=== PATIENT | female | born 1965 | race Caucasian/White ===

== ENCOUNTER → 2016-12-20 | Day surgery (SDC) | payer MEDICARE ==
[~2016-12-20] MED LIST: ABIL5TAB6 PO; ATRO0.03; BACL20TA PO; BETH5TAB PO; CALC600T44 PO; CLON1 PO; CYMB30CA PO; DICL50 PO; DOCU240C PO; FLUT50I NASAL; FOLI400T30 PO; LACTATED RINGER'S 1000 ML INJ 1,000 ML ONE; LEVO125T3 PO; MIDAZOLAM HCL 2 MG/2 ML VIAL ONE; MIDO5 PO; MIRA33502 PO; NAPR250T57 PO; ONABOTULINUMTOXINA INJ 100 UNITS/VIAL ONE; OXYC10TA8 PO; PRIL40CA PO; PROM25TA5 PO; PROPOFOL 200 MG/20 ML AMP IV ONE; SODI1 PO; SODIUM CHLORIDE 0.9% INJ 10 ML ONE; TAB-TAB PO; TRAZ100 PO; VITA100017 PO; VITA10002 PO; ZOLP10TA3 PO
--- NOTE | 2016-12-20 14:04 | GIPROC ---
[facility] [address] [facility], [address] EGD PROCEDURE REPORT EXAM DATE: 12/20/2016 PATIENT NAME: Rachel May MR #: [id number] BIRTHDATE: 1965 ATTENDING: Ivan Casey MD ORDER #: [id number] CLOTH DESIZING RANGE TENDER: Patito Holman RN STATUS: outpatient INDICATIONS: The patient is a 51 yr old female here for an EGD due to gastroparesis PROCEDURE PERFORMED: EGD w/ biopsy MEDICATIONS: None, Per Anesthesia, None, and Per Anesthesia. TOPICAL ANESTHETIC: CONSENT: The patient understands the risks and benefits of the procedure and understands that these risks include, but are not limited to: sedation, allergic reaction, infection, perforation and/or bleeding. Alternative means of evaluation and treatment include, among others: physical exam, x-rays, and/or surgical intervention. The patient elects to proceed with this endoscopic procedure. medical equipment was checked for proper function. Hand hygiene and appropriate measures for infection prevention was taken. After the risks, benefits and alternatives of the procedure were thoroughly explained, Informed consent was verified, confirmed and timeout was successfully executed by the treatment team. The patient was anesthetized with topical anesthesia and the EG-[id number] ([id number]) endoscope was introduced through the mouth and advanced to the second portion of the duodenum. Retroflexed views revealed no abnormalities The gastroscope was then slowly withdrawn and removed. ESOPHAGUS: The mucosa of the esophagus appeared normal. STOMACH: There was a small amount of residual food seen in the gastric body. The mucosa of the stomach appeared normal. 100 units of botox injected into the pylorus. DUODENUM: The duodenal mucosa appeared normal. ADVERSE EVENTS: There were no complications. IMPRESSIONS: 1. The esophagus appeared normal 2. Food residue in the gastric body 3. The mucosa of the stomach appeared normal 4. Normal duodenal mucosa 5. Retroflexed views revealed no abnormalities RECOMMENDATIONS: Follow-up: GI clinic 4 week(s) PATIENT CONDITION: stable DISPOSITION: Home REPEAT EXAM: Ivan Casey MD eSigned: Ivan Casey MD 12/20/2016 2:04 PM cc: Jose Miguel Cerda, [facility] Nicole PATIENT NAME: Rachel May MR#: [id number]
== END | disposition home or self-care (01) ==
LOC: ESDC 11:45
PROVIDERS: ATTEND Internal Medicine Gastroenterology
DX: K31.84 Gastroparesis (principal)
CPT/HCPCS: 00740; 43236; J0585; J2250; J3010; J7120

== ENCOUNTER 2017-05-30 11:17 | Emergency (ER) | payer MEDICARE ==
[~2017-05-30] VITALS: Ht 154.9 cm; Wt 39.5 kg
[~2017-05-30 11:17] MED LIST changes: -LACTATED RINGER'S 1000 ML INJ 1,000 ML ONE; -MIDAZOLAM HCL 2 MG/2 ML VIAL ONE; -ONABOTULINUMTOXINA INJ 100 UNITS/VIAL ONE; -PROPOFOL 200 MG/20 ML AMP IV ONE; -SODIUM CHLORIDE 0.9% INJ 10 ML ONE
[2017-05-30 11:19] VITALS: BP 105/57; PULSE 101; RESP 15; TEMP 97.9; O2SAT 99
[2017-05-30] MEDS ORDERED: SODIUM CHLORIDE 0.9% FLUSH 10 ML FLUSH IV FLUSH PRN (12:00)
[2017-05-30 12:36] LABS: AUTOMATED NEUTROPHIL # 2.4 TH/MM3 (1.8-7.7); BASOPHIL % 0.7 % (0.0-2.0); EOSINOPHIL # 0.1 TH/MM3 (0-0.4); EOSINOPHIL % 1.6 % (0.0-4.0); HEMATOCRIT 39.5 % (35.0-46.0); HEMO FLAGS DIFF FINAL; LYMPH % 36.4 % (9.0-44.0); LYMPHOCYTE # 1.6 TH/MM3 (1.0-4.8); MEAN CELL VOLUME 96.4 FL (80.0-100.0); MEAN CORPUSCULAR HEMOGLOBIN 32.6 PG (27.0-34.0); MEAN CORPUSCULAR HGB CONC 33.9 % (32.0-36.0); MONO % 7.8 % (0.0-8.0); NEUT % 53.5 % (16.0-70.0); PLATELET COUNT 209 TH/MM3 (150-450); RED BLOOD COUNT 4.09 MIL/MM3 (4.00-5.30); RED CELL DISTRIBUTION WIDTH 13.2 % (11.6-17.2); WHITE BLOOD COUNT 4.4 TH/MM3 (4.0-11.0)
[2017-05-30 12:49] LABS: BACTERIA, URINE OCC /hpf; BLOOD, URINE NEG (NEG); COMMENT (UR) CULT NOT INDICATED; CULTURE IF INDICATED CULT NOT INDICATED; GLUCOSE,URINE NEG (NEG); KETONE, URINE NEG (NEG); MUCUS URINE FEW /lpf (OCC); NITRITE,URINE NEG (NEG); SQUAMOUS EPITHELIAL CELL URINE 5 /hpf (0-5); URINE COLOR YELLOW (YELLW/STRAW)
[2017-05-30 12:51] LABS: APTT (PATIENT) 26.4 SEC (24.3-30.1); INTERNATIONAL NORMALIZED RATIO 1.1 RATIO; PROTHROMBIN TIME - PATIENT 11.2 SEC (9.8-11.6)
[2017-05-30 12:58] LABS: ALT (GPT) 178 U/L (10-53); ANION GAP 6 MEQ/L (5-15); AST (GOT) 89 U/L (15-37); BICARBONATE 30.8 MEQ/L (21.0-32.0); BLOOD UREA NITROGEN 17 MG/DL (7-18); CHLORIDE 101 MEQ/L (98-107); GLOMERULAR FILTRATION RATE 85 ML/MIN (>89); POTASSIUM 3.8 MEQ/L (3.5-5.1); SODIUM (NA) 138 MEQ/L (136-145)
[2017-05-30 13:00] LABS: ALKALINE PHOSPHATASE 84 U/L (45-117); TOTAL BILIRUBIN ADULT 0.3 MG/DL (0.2-1.0)
[2017-05-30 13:28] VITALS: O2SAT 100
[2017-05-30 13:31] VITALS: BP 102/71; PULSE 60; RESP 20; O2SAT 100
[2017-05-30] MEDS ORDERED: SODIUM CHLOR 0.9% 1000 ML INJ 1,000 ML IV ONE (13:45)
[2017-05-30] MEDS ORDERED: MORPHINE SULFATE 4 MG/ML INJ IV PUSH ONE (13:45)
[2017-05-30] MEDS ORDERED: ONDANSETRON HCL 4 MG/2 ML VIAL IV PUSH ONE (13:45)
--- NOTE | 2017-05-30 13:52 | PD ---
HPI Chief Complaint: Abdominal Pain Time Seen by Provider: 13:28 Travel History International Travel<30 days: No Contact w/Intl Traveler<30days: No Traveled to known affect area: No History of Present Illness HPI 52-year-old female presents to the emergency department for evaluation of upper abdominal pain. Patient states she has been having it since the beginning of April. She sees Dr. Marissa wing outpatient. She brings up on her which looks sick she is having significant outpatient workup. She had ultrasound the gallbladder done on May 16 which showed cholelithiasis and dilated common bile duct. She had a CT abdomen/pelvis on May 05 which showed a 6 mm gallstone. Patient is currently on oxycodone 10 mg every 2 hours. She is supposed to see a surgeon about having her gallbladder out outpatient as well as a colonoscopy. She states the doctors local [facility] nurse practitioner's are tender to the emergency department today. She states her pain is currently 8/10, radiates across the upper abdomen, aching and sharp at times. Patient reports diarrhea, 7 times in the past 24 hours. She states is actually better than it has been. Moderate severity. Patient reports past medical history of diabetes, gastroparesis, CMP, hypotension, anxiety, depression, neck stenosis, arthritis, PTSD, chronic pain, elevated liver enzymes. PFSH Past Medical History Cancer: Yes (thyroid) Cardiovascular Problems: Yes (tachycardia mitral valve prolapse) Diabetes: No Endocrine: Yes Genitourinary: No Hepatitis: No Hiatal Hernia: Yes Immune Disorder: Yes (form of mono) Musculoskeletal: Yes (arthritis of the neck scoliosis bulging disc) Neurologic: No Psychiatric: Yes (anxiety depression "pt states recovering drug addiction") Reproductive: No Respiratory: No Thyroid Disease: Yes (hx of thyroid cancer) Past Surgical History Abdominal Surgery: Yes (appendectomy) AICD: No Body Medical Devices: breast implants Gynecologic Surgery: Yes (hystererctomy laparoscopy ) Joint Replacement: No Oral Surgery: Yes (rhinoplasty carisa lower blepharplasty) Pacemaker: No Thoracic Surgery: Yes (breast implants liposuction) Social History Alcohol Use: No Tobacco Use: Yes (vapes) Substance Use: No Allergies-Medications (Allergen,Severity, Reaction): Coded Allergies: prochlorperazine (Unverified Allergy, Severe, anaphylaxis, 05/30/17) Reported Meds & Prescriptions Reported Meds & Active Scripts Active Reported Abilify 5 mg (Aripiprazole) 5 Mg Tab 5 Mg PO DAILY Cymbalta (Duloxetine HCl) 30 Mg Cap 90 Mg PO DAILY Naprosyn (Naproxen) 250 Mg Tab 220 Mg PO DAILY Naprosyn (Naproxen) 250 Mg Tab 440 Mg PO HS PRN Fluticasone Propionate 50 Mcg/Act Spr NASAL BID Voltaren (Diclofenac Sodium) 50 Mg Tabec 75 Mg PO BID Prilosec 40 mg cap (Omeprazole) 40 Mg Cap 40 Mg PO DAILY Trazodone Hcl (Trazodone HCl) 100 Mg Tab 100 Mg PO HS Atrovent Nasal (Ipratropium [place]) 0.03 % Isa 2 Spr NA TID Miralax (Polyethylene Glycol) 255 Gm Powd 1 Capful PO DAILY MIX 1 CAPFUL (17 GM) IN 8 OZ OF WATER Clonazepam 1 Mg Tab 1 Mg PO TID Zolpidem Tartrate 10 Mg Tab 10 Mg PO HS Levothyroxine 125 mcg (Levothyroxine Sodium) 125 Mcg Tab 125 Mcg PO DAILY Bethanechol Chloride 5 Mg Tab 5 Mg PO DAILY Lioresal 20 Mg Tab (Baclofen) 20 Mg Tab 20 Mg PO TID Oxycodone (Oxycodone HCl) 10 Mg Tab 10 Mg PO Q4H PRN Proamatine 5 Mg Tab (Midodrine) 5 Mg Tab 5 Mg PO DAILY Sodium Chloride 1 Gm Tab 1 Gm PO BID Vitamin B12 (Cyanocobalamin) 1,000 Mcg Tab 2,000 Mcg PO DAILY Folate (Folic Acid) 400 Mcg Tab 400 Mcg PO DAILY Calcium (Calcium Carbonate) 600 Mg Tab 600 Mg PO DAILY Docusate Calcium 240 Mg Cap 250 Mg PO DAILY Multivitamin (Multivitamins) 1 Tab Tab 1 Tab PO DAILY Vitamin C (Ascorbic Acid) 1,000 Mg Tab 1,000 Mg PO DAILY Phenergan 25 mg (Promethazine HCl) 25 Mg Tab 25 Mg PO Q6H PRN Review of Systems Except as stated in HPI: all other systems reviewed are Neg Physical Exam Narrative GENERAL: Well-nourished, well-developed thin female patient, afebrile. SKIN: Focused skin assessment warm/dry. HEAD: Normocephalic. Atraumatic EYES: No scleral icterus. No injection or drainage. NECK: Supple, trachea midline. No JVD or lymphadenopathy. CARDIOVASCULAR: Regular rate and rhythm without murmurs, gallops, or rubs. RESPIRATORY: Breath sounds equal bilaterally. No accessory muscle use. Lungs sounds are clear to auscultation. GASTROINTESTINAL: Abdomen soft and nondistended. Patient has tenderness to palpation of the right upper quadrant, epigastric area, left upper quadrant.. MUSCULOSKELETAL: No cyanosis, or edema. BACK: Nontender without obvious deformity. No CVA tenderness. Data Data Last Documented VS Vital Signs Date Time Temp Pulse Resp B/P (MAP) Pulse Ox O2 Delivery O2 Flow Rate FiO2 05/30/17 13:31 60 20 102/71 (81) 100 Room Air 05/30/17 11:19 97.9 Orders Orders Complete Blood Count With Diff (05/30/17 11:46) Comprehensive Metabolic Panel (05/30/17 11:46) Lipase (05/30/17 11:46) Prothrombin Time / Inr (Pt) (05/30/17 11:46) Act Partial Throm Time (Ptt) (05/30/17 11:46) Urinalysis - C+S If Indicated (05/30/17 11:46) Iv Access Insert/Monitor (05/30/17 11:46) Ecg Monitoring (05/30/17 11:46) Oximetry (05/30/17 11:46) Sodium Chloride 0.9% Flush (Ns Flush) (05/30/17 12:00) Electrocardiogram (05/30/17 11:46) Sodium Chlor 0.9% 1000 Ml Inj (Ns 1000 M (05/30/17 13:45) Morphine Inj (Morphine Inj) (05/30/17 13:45) Ondansetron Inj (Zofran Inj) (05/30/17 13:45) Labs Laboratory Tests Test 05/30/17 12:10 White Blood Count 4.4 TH/MM3 Red Blood Count 4.09 MIL/MM3 Hemoglobin 13.4 GM/DL Hematocrit 39.5 % Mean Corpuscular Volume 96.4 FL Mean Corpuscular Hemoglobin 32.6 PG Mean Corpuscular Hemoglobin Concent 33.9 % Red Cell Distribution Width 13.2 % Platelet Count 209 TH/MM3 Mean Platelet Volume 8.2 FL Neutrophils (%) (Auto) 53.5 % Lymphocytes (%) (Auto) 36.4 % Monocytes (%) (Auto) 7.8 % Eosinophils (%) (Auto) 1.6 % Basophils (%) (Auto) 0.7 % Neutrophils # (Auto) 2.4 TH/MM3 Lymphocytes # (Auto) 1.6 TH/MM3 Monocytes # (Auto) 0.3 TH/MM3 Eosinophils # (Auto) 0.1 TH/MM3 Basophils # (Auto) 0.0 TH/MM3 CBC Comment DIFF FINAL Differential Comment Prothrombin Time 11.2 SEC Prothromb Time International Ratio 1.1 RATIO Activated Partial Thromboplast Time 26.4 SEC Urine Color YELLOW Urine Turbidity CLEAR Urine pH 6.0 Urine Specific [place] 1.014 Urine Protein NEG mg/dL Urine Glucose (UA) NEG mg/dL Urine Ketones NEG mg/dL Urine Occult Blood NEG Urine Nitrite NEG Urine Bilirubin NEG Urine Urobilinogen LESS THAN 2.0 MG/DL Urine Leukocyte Esterase NEG Urine RBC 1 /hpf Urine WBC LESS THAN 1 /hpf Urine Squamous Epithelial Cells 5 /hpf Urine Bacteria OCC /hpf Urine Mucus FEW /lpf Microscopic Urinalysis Comment CULT NOT INDICATED Blood Urea Nitrogen 17 MG/DL Creatinine 0.72 MG/DL Random Glucose 106 MG/DL Total Protein 7.1 GM/DL Albumin 4.0 GM/DL Calcium Level 9.1 MG/DL Alkaline Phosphatase 84 U/L Aspartate Amino Transf (AST/SGOT) 89 U/L Alanine Aminotransferase (ALT/SGPT) 178 U/L Total Bilirubin 0.3 MG/DL Sodium Level 138 MEQ/L Potassium Level 3.8 MEQ/L Chloride Level 101 MEQ/L Carbon Dioxide Level 30.8 MEQ/L Anion Gap 6 MEQ/L Estimat Glomerular Filtration Rate 85 ML/MIN Lipase 149 U/L [facility] Medical Decision Making Medical Screen Exam Complete: Yes Emergency Medical Condition: Yes Medical Record Reviewed: Yes Differential Diagnosis Chronic pain versus cholelithiasis versus cholecystitis versus pancreatitis Narrative Course 52-year-old female presents to the emergency department sent by hvac lead. Patient has had abdominal pain for approximately one month. She has been worked up outpatient. She does bring the paperwork with her and I did review it. EKG shows sinus rhythm, heart rate 60, no acute ST changes. CBC is unremarkable. CMP shows elevated liver enzymes with an AST of 89, ALT 178. Lipase is 149. Coags are unremarkable. UA shows occasional bacteria, culture not indicated. Patient is given normal saline 1 L IV bolus, morphine 4 mg IV, Zofran [address] Edwards is paged. I spoke to Dr. Roach who states that he believes his nurse practitioner saw her and sent her to the emergency department. He would like her to make a follow-up appointment and see him. His phone # is [phone]. I discussed this with the patient who is frustrated and would like to be admitted. However, she states she'll make a follow-up appointment and see Dr. Johns. Her labs are reassuring. The patient was discharged in stable condition with instructions, including return instructions and follow up instructions. Diagnosis Primary Impression: Abdominal pain Qualified Codes: R10.10 - Upper abdominal pain, unspecified Referrals: Geoffrey Roach MD call for appointment Patient Instructions: Abdominal Pain (ED), General Instructions Additional Instructions: Follow up with Dr. Roach. His number is [phone]. Return to the emergency department for any acute, worsening of symptoms. Med/Other Pt SpecificInfo: No Change to Meds Disposition: 01 DISCHARGE HOME Condition: Stable Jeanne Reagan May 30, 2017 13:52
[2017-05-30 14:30] VITALS: BP 98/68; PULSE 64; RESP 22; O2SAT 96
--- NOTE | 2017-05-31 16:46 | EKG ---
Date Performed: 05/30/2017 Time Performed: 13:29:48 PTAGE: 52 years EKG: Sinus rhythm NORMAL ECG Since PREVIOUS TRACING , no significant change noted PREVIOUS TRACIN01/27/2016 09.47 DOCTOR: Dallas Isaacs Interpretating Date/Time 05/31/2017 16:45:34
== END 2017-05-30 15:52 | disposition home or self-care (01) ==
LOC: NEPC 11:17
DX: R10.10 Upper abdominal pain, unspecified (principal); R19.7 Diarrhea, unspecified; E11.43 Type 2 diabetes mellitus with diabetic autonomic (poly)neuropathy; K31.84 Gastroparesis; Z72.0 Tobacco use; Z85.850 Personal history of malignant neoplasm of thyroid
CPT/HCPCS: 80053; 81001; 83690; 85025; 85610; 85730; 93005; 96361; 96374; 96375; 99284; J2270; J2405; J7030

== ENCOUNTER → 2017-09-24 | Outpatient (CLI) | payer MEDICARE ==
[~2017-09-24] MED LIST changes: +ASCO1TAB14 PO; +B-122000 PO; +BIOTCAP PO; +CALC1TAB87 PO; +CETI-1 PO; +CLON1TAB PO; +CYMB60CA PO; +DAILTAB38 PO; +DICY10 PO; +DICY10CA12 PO; +DOCU100C15 PO; +ERYT250T13 PO; +ESTR0.5T PO; +ETOD400T PO; +FOLI400T PO; +LEVO125T4 PO; +MIDO5TAB PO; +MIRA3350 PO; +OXYC-395 PO; +PROM25TA10 PO; +SODI1TAB PO; +TRAZ300T2 PO; +ZINC220T PO
[2017-09-24 11:20] LABS: AUTOMATED NEUTROPHIL # 1.6 TH/MM3 (1.8-7.7); BASOPHIL % 0.9 % (0.0-2.0); EOSINOPHIL # 0.2 TH/MM3 (0-0.4); EOSINOPHIL % 4.4 % (0.0-4.0); HEMATOCRIT 38.6 % (35.0-46.0); HEMOGLOBIN 13.1 GM/DL (11.6-15.3); LYMPH % 42.1 % (9.0-44.0); LYMPHOCYTE # 1.5 TH/MM3 (1.0-4.8); MEAN CELL VOLUME 96.9 FL (80.0-100.0); MEAN CORPUSCULAR HEMOGLOBIN 32.8 PG (27.0-34.0); MEAN CORPUSCULAR HGB CONC 33.8 % (32.0-36.0); MEAN PLATELET VOLUME 7.4 FL (7.0-11.0); MONO % 8.8 % (0.0-8.0); MONOCYTE # 0.3 TH/MM3 (0-0.9); NEUT % 43.8 % (16.0-70.0); PLATELET COUNT 234 TH/MM3 (150-450); RED BLOOD COUNT 3.98 MIL/MM3 (4.00-5.30); RED CELL DISTRIBUTION WIDTH 13.2 % (11.6-17.2); WHITE BLOOD COUNT 3.6 TH/MM3 (4.0-11.0)
[2017-09-24 11:28] LABS: INTERNATIONAL NORMALIZED RATIO 1.1 RATIO; PROTHROMBIN TIME - PATIENT 10.9 SEC (9.8-11.6)
[2017-09-24 11:34] LABS: ALBUMIN 3.7 GM/DL (3.4-5.0); AST (GOT) 36 U/L (15-37); BICARBONATE 31.5 MEQ/L (21.0-32.0); BLOOD UREA NITROGEN 18 MG/DL (7-18); CALCIUM 8.8 MG/DL (8.5-10.1); CHLORIDE 107 MEQ/L (98-107); CREATININE 0.79 MG/DL (0.50-1.00); GLOMERULAR FILTRATION RATE 77 ML/MIN (>89); GLUCOSE,FASTING 77 MG/DL (74-99); SODIUM (NA) 142 MEQ/L (136-145)
[2017-09-24 11:40] LABS: ALKALINE PHOSPHATASE 76 U/L (45-117); ALT (GPT) 59 U/L (10-53); TOTAL BILIRUBIN ADULT 0.4 MG/DL (0.2-1.0)
--- NOTE | 2017-09-24 12:08 | RADRPT ---
EXAM DATE/TIME: 09/24/2017 11:36 [place] COMPARISON: No previous studies available for comparison. INDICATIONS : Evaluate for pneumothorax, pneumonia, or other communicable disease. Pre-op bowel obstruction. MEDICAL HISTORY : None. SURGICAL HISTORY : None. ENCOUNTER: Initial ACUITY: 1 day PAIN SCORE: 0/10 LOCATION: Bilateral chest FINDINGS: PA and lateral views of the chest demonstrate the lungs to be symmetrically aerated without evidence of mass, infiltrate or effusion. No evidence of pneumothorax. The cardiomediastinal contours are un remarkable. Osseous structures are intact. CONCLUSION: No acute cardiopulmonary disease. Fazal Mayer MD on September 24, 2017 at 12:06 Board Certified Radiologist. This report was verified electronically.
[2017-09-24 13:28] LABS: AMORPHOUS SEDIMENT, URINE FEW; BILIRUBIN, URINE MOD (NEG); BLOOD, URINE NEG (NEG); GLUCOSE,URINE NEG (NEG); KETONE, URINE NEG (NEG); MUCUS URINE FEW /lpf (OCC); NITRITE,URINE NEG (NEG); SQUAMOUS EPITHELIAL CELL URINE 1 /hpf (0-5); URINE COLOR YELLOW (YELLW/STRAW); URINE LEUKOCYTE ESTERASE NEG (NEG)
--- NOTE | 2017-09-24 22:46 | EKG ---
Date Performed: 09/24/2017 Time Performed: 10:43:18 PTAGE: 52 years EKG: Sinus rhythm LOW QRS VOLTAGE IN PRECORDIAL LEADS BORDERLINE ECG NO PREVIOUS TRACING Since the previous tracing, no significant change noted DOCTOR: [place] Gar Interpretating Date/Time 09/24/2017 22:45:07
== END ==
LOC: CPRE 10:19
PROVIDERS: ATTEND Colon & Rectal Surgery
DX: Z01.812 Encounter for preprocedural laboratory examination (principal); Z01.811 Encounter for preprocedural respiratory examination; Z01.810 Encounter for preprocedural cardiovascular examination; K57.30 Diverticulosis of large intestine without perforation or abscess without bleeding
CPT/HCPCS: 36415; 71046; 80053; 81001; 85025; 85610; 85730; 93005

== ENCOUNTER 2017-09-27 09:39 | Inpatient (IN) | payer MEDICARE ==
[~2017-09-27] VITALS: Ht 154.9 cm; Wt 50.6 kg
[~2017-09-27 09:39] MED LIST changes: -ABIL5TAB6 PO; -ATRO0.03; -BETH5TAB PO; -CALC600T44 PO; -CLON1 PO; -CYMB30CA PO; -DICL50 PO; -DOCU240C PO; -FLUT50I NASAL; -FOLI400T30 PO; -LEVO125T3 PO; -MIDO5 PO; -MIRA33502 PO; -NAPR250T57 PO; -OXYC10TA8 PO; -PRIL40CA PO; -PROM25TA5 PO; -SODI1 PO; -TAB-TAB PO; -TRAZ100 PO; -VITA100017 PO; -VITA10002 PO
[2017-09-27] MEDS ORDERED: ONDANSETRON HCL 4 MG/2 ML VIAL IV ONE (12:00)
[2017-09-27] MEDS ORDERED: SODIUM CHLORID 0.9% 500 ML IV PRN (12:00)
[2017-09-27] MEDS ORDERED: PROPOFOL 200 MG/20 ML AMP IV ONE (12:00)
[2017-09-27] MEDS ORDERED: METRONIDAZOLE 500 MG/100 ML ISONTONIC SOLN IV SCH (12:00)
[2017-09-27] MEDS ORDERED: LACTATED RINGER'S 1000 ML IV PRN (12:00)
[2017-09-27] MEDS ORDERED: ceFAZolin 1,000 MG/NS 100 ML IV SCH ×2 (12:00)
[2017-09-27] MEDS ORDERED: LIDOCAINE HCL 1% PF 5 ML SYRINGE OTHER ONE (12:00)
[2017-09-27] MEDS ORDERED: ROCURONIUM INJ 50 MG/5 ML SYRINGE IV PUSH ONE (12:00)
[2017-09-27] MEDS ORDERED: DEXT 5%-NACL 0.9% 1000 ML INJ 1,000 ML IV SCH (12:00)
[2017-09-27] MEDS ORDERED: NEOSTIGMINE 5 MG/5 ML SYRINGE IV PUSH ONE (12:00)
[2017-09-27] MEDS ORDERED: METOPROLOL TARTRATE 25 MG TAB PO PRN (12:00)
[2017-09-27] MEDS ORDERED: NORMOSOL R INJ 1,000 ML IV ONE (12:00)
[2017-09-27] MEDS ORDERED: DEXAMETHASONE SOD PHOS 4 MG/ML VIAL IV ONE (12:00)
[2017-09-27] MEDS ORDERED: ESMOLOL HCL 100 MG/10 ML VIAL IV ONE (12:00)
[2017-09-27] MEDS ORDERED: ALVIMOPAN 12 MG CAPSULE - On Call PO SCH (12:00)
[2017-09-27] MEDS ORDERED: GLYCOPYRROLATE 1 MG/5 ML SYRINGE IV PUSH ONE (12:00)
[2017-09-27] MEDS ORDERED: LACTATED RINGER'S 1000 ML INJ 1,000 ML IV ONE (12:00)
[2017-09-27] MEDS ORDERED: HYDROmorphone HCL PF 2 MG/ML VIAL ONE (12:52)
[2017-09-27] MEDS ORDERED: ACETAMINOPHEN 1000 MG/100 ML 100 ML IV ONE (12:52)
[2017-09-27] MEDS ORDERED: fentaNYL CITRATE 250 MCG/5 ML AMP ONE (12:52)
[2017-09-27] MEDS ORDERED: SUGAMMADEX SODIUM 200 MG/2 ML VIAL IV PUSH ONE (12:52)
[2017-09-27] MEDS ORDERED: MIDAZOLAM HCL 2 MG/2 ML VIAL ONE ×2 (13:35→16:02)
--- NOTE | 2017-09-27 14:34 | PD.OP ---
Operative Report Date of Surgery: Sep 27, 2017 Preoperative Diagnosis: Diverticulitis Postoperative Diagnosis: Same Procedure: Cystoscopy with bilateral ureteral catheter insertion Anesthesia: SAVAGE Surgeon: aJsbir Diehl Tilt Tray Driver(s): None Resident Surgeon: None Operation and Findings: Cystoscopy with [bilateral ureteral catheter insertion. This] is a [52]-year- old [female] with a history of [diverticulitis]. [Davon] requested bilateral ureteral catheter placement prior to undergoing [colon resection]. Risk and benefits were discussed with the patient and he is willing proceed. Patient was brought to operating room identify myself as [Cornelia Hernandez]. [ She] was placed in dorsal lithotomy position, prepped and draped in usual sterile fashion, received preprocedure antibiotics, and general endotracheal tube anesthesia was administered. 22 Scottish scope was inserted in the bladder and carrillo cystoscopy [did not reveal any abnormalities.]. The left ureteral orifice was identified and a 5 Scottish open catheter was inserted in the left ureteral orifice without difficulty. This was again repeated on the right side without difficulty. The Parker was then inserted and the catheters were secured to the catheter. The patient tolerated the procedure well. Jasbir Dihel DO Sep 27, 2017 14:34
[2017-09-27] MEDS ORDERED: oxyCODONE/ACETAMINOPHEN 5 MG/325 MG TAB PO PRN ×2 (15:30)
[2017-09-27] MEDS ORDERED: SODIUM CHLORIDE 0.9% FLUSH 10 ML FLUSH IV FLUSH PRN (15:30)
[2017-09-27] MEDS ORDERED: Post-op Orders (for Pharmacy) XX ONE (15:30)
[2017-09-27] MEDS ORDERED: POTASSIUM CHLOR 40 MEQ PREMIX 100 ML IV PRN (15:30)
[2017-09-27] MEDS ORDERED: POTASSIUM CHLOR 20 MEQ PREMIX 100 ML IV PRN (15:30)
[2017-09-27] MEDS ORDERED: KETOROLAC TROMETHAMINE 30 MG/ML (IVP) VIAL IVP PRN (15:30)
[2017-09-27] MEDS ORDERED: NALOXONE HCL 0.4 MG/ML AMP IV PUSH PRN (15:30)
[2017-09-27] MEDS ORDERED: ENALAPRILAT 1.25 MG/ML VIAL IV PUSH PRN (15:30)
[2017-09-27] MEDS ORDERED: BENZOCAINE 6 MG/MENTHOL 10 MG LOZENGE BUCCAL PRN (15:30)
[2017-09-27] MEDS ORDERED: ZOLPIDEM TARTRATE 5 MG TAB PO PRN (15:30)
[2017-09-27] MEDS ORDERED: ONDANSETRON HCL 4 MG/2 ML VIAL IV PUSH PRN (15:30)
[2017-09-27] MEDS ORDERED: DO NOT ADM ANY ANTICOAGULANT DRUGS PRN (15:59)
[2017-09-27] MEDS ORDERED: *MEPERIDINE 25 MG INJ VIAL PERIprocedural Use ONLY ONE (16:19)
[2017-09-27] MEDS ORDERED: *HYDROmorphone PF 1 MG VIAL PERIprocedural Use ONLY ONE ×2 (16:20→17:31)
[2017-09-27 16:45] LABS: AUTOMATED NEUTROPHIL # 15.9 TH/MM3 (1.8-7.7); BASOPHIL % 0.2 % (0.0-2.0); EOSINOPHIL % 0.1 % (0.0-4.0); HEMATOCRIT 38.4 % (35.0-46.0); HEMOGLOBIN 12.8 GM/DL (11.6-15.3); LYMPH % 6.8 % (9.0-44.0); LYMPHOCYTE # 1.2 TH/MM3 (1.0-4.8); MEAN CORPUSCULAR HEMOGLOBIN 32.5 PG (27.0-34.0); MEAN CORPUSCULAR HGB CONC 33.5 % (32.0-36.0); MEAN PLATELET VOLUME 7.3 FL (7.0-11.0); MONO % 3.3 % (0.0-8.0); MONOCYTE # 0.6 TH/MM3 (0-0.9); NEUT % 89.6 % (16.0-70.0); PLATELET COUNT 216 TH/MM3 (150-450); RED BLOOD COUNT 3.96 MIL/MM3 (4.00-5.30); RED CELL DISTRIBUTION WIDTH 13.1 % (11.6-17.2); WHITE BLOOD COUNT 17.7 TH/MM3 (4.0-11.0)
[2017-09-27] MEDS: D5-LR + KCL 20 MEQ INJ 1,000 ML IV SCH ×2 (17:00→23:34)
[2017-09-27 17:18] LABS: BICARBONATE 23.4 MEQ/L (21.0-32.0); CALCIUM 7.9 MG/DL (8.5-10.1); CREATININE 0.72 MG/DL (0.50-1.00)
[2017-09-27] MEDS: HYDROmorphone HCL PCA 6 MG/30 ML IV SCH (17:45)
[2017-09-27] MEDS: clonazePAM 1 MG TAB PO SCH (18:00)
[2017-09-27] MEDS: METOCLOPRAMIDE HCL 10 MG/2 ML VIAL IVS SCH ×2 (18:00→23:34)
[2017-09-27] MEDS: BACLOFEN 20 MG TAB PO SCH (18:00)
[2017-09-27 18:33] VITALS: BP 130/79; PULSE 100; RESP 20; TEMP 98.3; O2SAT 97
[2017-09-27 20:00] VITALS: BP 111/60; PULSE 98; RESP 14; TEMP 98.6; O2SAT 96
[2017-09-27] MEDS: traZODone HCL 100 MG TAB PO SCH (21:00)
[2017-09-27] MEDS ORDERED: ETODOLAC 200 MG CAP PO SCH (21:00)
[2017-09-27] MEDS: metroNIDAZOLE 500 MG INJ 100 ML IV SCH (21:57)
[2017-09-27] MEDS: SODIUM CHLORIDE 0.9% FLUSH 10 ML FLUSH IV FLUSH SCH (21:58)
[2017-09-27] MEDS: FUROSEMIDE 20 MG/2 ML VIAL IV PUSH SCH (21:59)
[2017-09-27] MEDS: PCA - TOTAL MG DILAUDID DELIVERED PER SHIFT OTHER SCH (22:00)
[2017-09-28] VITALS (7 sets, daily range): BP systolic 97–118; BP diastolic 62–72; PULSE 90–105; RESP 14–18; TEMP 98–98.8; O2SAT 95–97
[2017-09-28] MEDS: HYDROmorphone HCL PCA 6 MG/30 ML IV SCH ×4 (00:38→11:11)
[2017-09-28] MEDS: LEVOTHYROXINE SODIUM 125 MCG TAB PO SCH (05:53)
[2017-09-28] MEDS: clonazePAM 1 MG TAB PO SCH ×3 (05:53→18:03)
[2017-09-28] MEDS: PCA - TOTAL MG DILAUDID DELIVERED PER SHIFT OTHER SCH ×3 (05:54→21:36)
[2017-09-28] MEDS: ERYTHROMYCIN EC 250 MG TABEC PO SCH ×2 (05:54→18:03)
[2017-09-28] MEDS: METOCLOPRAMIDE HCL 10 MG/2 ML VIAL IVS SCH ×4 (05:55→21:37)
[2017-09-28] MEDS: metroNIDAZOLE 500 MG INJ 100 ML IV SCH ×2 (05:55→13:31)
[2017-09-28] MEDS: D5-LR + KCL 20 MEQ INJ 1,000 ML IV SCH ×2 (06:08→14:00)
[2017-09-28 06:29] LABS: AUTOMATED NEUTROPHIL # 12.4 TH/MM3 (1.8-7.7); BASOPHIL % 0.2 % (0.0-2.0); HEMATOCRIT 35.7 % (35.0-46.0); LYMPH % 6.9 % (9.0-44.0); MEAN CELL VOLUME 96.3 FL (80.0-100.0); MEAN CORPUSCULAR HEMOGLOBIN 32.3 PG (27.0-34.0); MEAN CORPUSCULAR HGB CONC 33.5 % (32.0-36.0); MEAN PLATELET VOLUME 7.3 FL (7.0-11.0); MONO % 5.1 % (0.0-8.0); MONOCYTE # 0.7 TH/MM3 (0-0.9); NEUT % 87.8 % (16.0-70.0); PLATELET COUNT 210 TH/MM3 (150-450); RED BLOOD COUNT 3.71 MIL/MM3 (4.00-5.30); RED CELL DISTRIBUTION WIDTH 13.5 % (11.6-17.2); WHITE BLOOD COUNT 14.2 TH/MM3 (4.0-11.0)
[2017-09-28 06:59] LABS: BICARBONATE 30.2 MEQ/L (21.0-32.0); CALCIUM 7.8 MG/DL (8.5-10.1); CREATININE 0.83 MG/DL (0.50-1.00)
[2017-09-28] MEDS: SODIUM CHLORIDE 0.9% FLUSH 10 ML FLUSH IV FLUSH SCH ×2 (09:00→21:35)
--- NOTE | 2017-09-28 09:00 | MP ---
cc: Martin Lai MD DATE OF OPERATION: 09/27/2017 PREOPERATIVE DIAGNOSES: 1. Severe constipation. 2. Partial colon obstruction secondary to sigmoid tortuosity and adhesions. POSTOPERATIVE DIAGNOSES: 1. Severe constipation. 2. Partial colon obstruction secondary to sigmoid tortuosity and adhesions. PROCEDURES PERFORMED: Sigmoid colectomy. ANESTHESIA: General endotracheal. SURGEON: Martin Lai MD NEUROPHYSIOLOGY TECH: Dr. Daly ESTIMATED BLOOD LOSS: 25 mL. OPERATING TIME: One hour. OPERATIVE FINDINGS: This patient was a very thin patient, on multiple pain medicines and narcotic pain medicines, with severe constipation. The patient has had multiple thorough workups including colonoscopy, which was very difficult due to tortuosity of the sigmoid colon and she has had high fecal impactions. A Gastrografin enema study showed high fecal impaction above this sigmoid colon tortuosity and for this reason, exploratory laparotomy and sigmoid colectomy was recommended. At surgery, exploration of the abdominal cavity revealed that the liver was palpably normal. The gallbladder was surgically absent. Revealed that the remainder of the colon and small bowel was all palpably normal. She did have a very tortuous sigmoid colon loop that was stuck down in her pelvis at the site of her previous hysterectomy and stuck to the posterior wall of the bladder. This was mobilized and a sigmoid colectomy was done in a simple manner using an Ethicon LOGAN stapler for anastomosis. OPERATIVE TECHNIQUE: The patient was placed on the table in the supine position. After adequate general endotracheal anesthesia, the legs were placed in the perineal lithotomy position and the abdomen was prepped and draped in usual manner. Transverse infraumbilical skin incision was made, carried down through subcutaneous tissue and the rectus muscles and the peritoneal cavity was entered with the above-mentioned findings. The sigmoid colon and descending colon was mobilized along its peritoneal reflection up to, but not including, the splenic flexure. There was a lot of sigmoid redundancy and the sigmoid colon was tortuous and stuck down in the pelvis, above the rectum, posterior to the bladder and stuck to the bladder. This was easily unraveled with lysis of the adhesions. Once the sigmoid colon was straight and above the rectum, there was a big redundant loop that we elected to resect with simple resection and LOGAN anastomosis rather than using an EEA anastomosis. A point was chosen just above the rectum and an opening was made in the mesentery with electrocautery and the point of upper resection was chosen and the opening was made in the mesocolon as well. Staying close to the bowel wall, the mesocolon was successfully clamped, cut and ligated with 0 Vicryl ligatures and the upper margin of the resection was divided with an Ethicon LOGAN 55 stapling device, as well as the lower margin. The bowels were then placed next to each other and a functional end-to-end anastomosis was done with an Ethicon LOGAN 55 stapling device along the antimesenteric border of the bowel. The colotomy was closed with a TX 60 blue staple stapler and the opening in the mesentery was closed with a running 3-0 Vicryl suture. A seromuscular suture was placed at the apex of the staple line to prevent disruption at the apex. Once this was done, there was no tension on the anastomosis and the long redundant sigmoid had been removed. It was approximately 9-10 inches in length. Next, the abdominal cavity and pelvis were irrigated thoroughly with 2 liters of saline solution and aspirated dry and the bowels were replaced in the abdominal cavity in an armored car messenger manner and the transverse colon was placed over the small bowel. There was not much omentum since she was quite thin. Next, the abdominal wall was closed with a double-stranded #1 PDS through the posterior rectus sheath. The muscle layer was irrigated with a liter of saline solution and the anterior rectus sheath was closed with double stranded #1 PDS as well. The subcutaneous tissue was irrigated thoroughly with saline solution and aspirated dry and the skin was closed with running 3-0 Vicryl subcuticular sutures and dressing was applied. Sponge, needle and instrument counts were reported as correct. Estimated blood loss was 25 mL. The patient tolerated the procedure well and left the operating room in good condition. MD TAYLOR Lynn/SHAHBAZ , 06:42 PM , 07:04 PM
[2017-09-28] MEDS: MIDODRINE 5 MG TAB PO SCH (09:26)
[2017-09-28] MEDS: FUROSEMIDE 20 MG/2 ML VIAL IV PUSH SCH ×2 (09:28→21:34)
[2017-09-28] MEDS: PANTOPRAZOLE SODIUM 40 MG VIAL IVP SCH (09:28)
[2017-09-28] MEDS: BACLOFEN 20 MG TAB PO SCH ×3 (09:29→18:03)
[2017-09-28] MEDS: ESTRADIOL 1 MG TAB PO SCH (09:29)
[2017-09-28] MEDS: ALVIMOPAN 12 MG CAPSULE - Post-op dosing PO SCH ×2 (09:29→21:35)
[2017-09-28] MEDS: DULoxetine HCl DR 60 MG CAP PO SCH (09:29)
[2017-09-28] MEDS: [UNRECOGNIZED DRUG - REMARK] PO SCH ×2 (11:30→21:00)
--- NOTE | 2017-09-28 14:15 | HHI.PR ---
Subjective Remarks No vomiting. Some nausea. Tolerating liquids. Objective Vital Signs Date Time Temp Pulse Resp B/P (MAP) Pulse Ox O2 Delivery O2 Flow Rate FiO2 09/28/17 12:00 98.2 90 18 99/64 (76) 97 09/28/17 11:11 20 09/28/17 08:00 98.0 90 18 109/67 (81) 97 09/28/17 06:36 16 09/28/17 06:07 16 09/28/17 05:54 16 09/28/17 04:00 98.8 102 16 97/62 (74) 97 09/28/17 00:38 16 09/28/17 00:00 98.6 95 14 102/68 (79) 97 09/27/17 22:00 14 09/27/17 20:00 98.6 98 14 111/60 (77) 96 09/27/17 18:33 98.3 100 20 130/79 (96) 97 09/27/17 18:00 98.3 101 22 127/78 (94) 99 Nasal Cannula 2 09/27/17 17:45 97 16 131/75 (93) 98 09/27/17 17:45 20 09/27/17 17:30 100 17 134/80 (98) 98 Nasal Cannula 2 09/27/17 17:15 99 18 130/76 (94) 99 Nasal Cannula 2 09/27/17 17:00 102 26 132/73 (92) 96 Nasal Cannula 2 09/27/17 16:45 101 24 130/68 (88) 95 Nasal Cannula 2 09/27/17 16:30 99 24 127/65 (85) 97 Nasal Cannula 2 09/27/17 16:15 92 20 142/71 (94) 98 Nasal Cannula 2 09/27/17 16:00 92 18 126/68 (87) 100 Nasal Cannula 2 09/27/17 15:56 91 16 135/69 (91) 100 Nasal Cannula 2 I/O 09/27/17 09/27/17 09/27/17 09/28/17 09/28/17 09/28/17 07:00 15:00 23:00 07:00 15:00 23:00 Intake Total 1800 ml 240 ml Output Total 325 ml 1900 ml Balance 1475 ml -1660 ml Intake Oral 240 ml IV Total 1800 ml Output Urine Total 300 ml 1900 ml Estimated Blood Loss 25 ml Result Diagram: 09/28/17 0610 09/28/17 0610 Objective Remarks VS-S Abd: flat, soft, binder too wide. I&Os-OK Labs-OK Assessment and Plan Assessment and Plan Stable POD#1 Doing well other than pain control. OOB,cut binder. Ureteral cath removed. Restart Oxycodone. Martin Lai MD Sep 28, 2017 14:15
[2017-09-28] MEDS: HEPARIN SODIUM - SQ 10,000 UNITS/ML VIAL SQ SCH (18:02)
[2017-09-28] MEDS ORDERED: ALVIMOPAN 12 MG CAPSULE PO SCH (21:00)
[2017-09-28] MEDS: traZODone HCL 100 MG TAB PO SCH (21:36)
[2017-09-29] VITALS (7 sets, daily range): BP systolic 90–113; BP diastolic 57–65; PULSE 83–107; RESP 16–19; TEMP 97.8–98.7; O2SAT 90–93
[2017-09-29] MEDS: D5-LR + KCL 20 MEQ INJ 1,000 ML IV SCH (04:59)
[2017-09-29] MEDS: METOCLOPRAMIDE HCL 10 MG/2 ML VIAL IVS SCH (05:01)
[2017-09-29] MEDS: LEVOTHYROXINE SODIUM 125 MCG TAB PO SCH (05:03)
[2017-09-29] MEDS: PCA - TOTAL MG DILAUDID DELIVERED PER SHIFT OTHER SCH ×2 (06:00→22:00)
[2017-09-29] MEDS: ERYTHROMYCIN EC 250 MG TABEC PO SCH ×2 (06:20→18:10)
[2017-09-29 06:56] LABS: AUTOMATED NEUTROPHIL # 6.3 TH/MM3 (1.8-7.7); BASOPHIL % 0.2 % (0.0-2.0); EOSINOPHIL # 0.6 TH/MM3 (0-0.4); EOSINOPHIL % 6.3 % (0.0-4.0); HEMATOCRIT 31.1 % (35.0-46.0); HEMOGLOBIN 10.6 GM/DL (11.6-15.3); LYMPH % 16.8 % (9.0-44.0); LYMPHOCYTE # 1.5 TH/MM3 (1.0-4.8); MEAN CELL VOLUME 96.6 FL (80.0-100.0); MEAN CORPUSCULAR HEMOGLOBIN 32.9 PG (27.0-34.0); MEAN CORPUSCULAR HGB CONC 34.1 % (32.0-36.0); MEAN PLATELET VOLUME 7.6 FL (7.0-11.0); MONO % 6.3 % (0.0-8.0); MONOCYTE # 0.6 TH/MM3 (0-0.9); NEUT % 70.4 % (16.0-70.0); PLATELET COUNT 173 TH/MM3 (150-450); RED BLOOD COUNT 3.22 MIL/MM3 (4.00-5.30); RED CELL DISTRIBUTION WIDTH 12.8 % (11.6-17.2)
[2017-09-29 07:06] LABS: CALCIUM 7.9 MG/DL (8.5-10.1); CREATININE 0.62 MG/DL (0.50-1.00)
[2017-09-29] MEDS: SODIUM CHLORIDE 0.9% FLUSH 10 ML FLUSH IV FLUSH SCH ×2 (09:00→20:49)
[2017-09-29] MEDS: MIDODRINE 5 MG TAB PO SCH (09:31)
[2017-09-29] MEDS: FUROSEMIDE 20 MG/2 ML VIAL IV PUSH SCH ×2 (09:32→20:49)
[2017-09-29] MEDS: PANTOPRAZOLE SODIUM 40 MG VIAL IVP SCH (09:32)
[2017-09-29] MEDS: HEPARIN SODIUM - SQ 10,000 UNITS/ML VIAL SQ SCH ×2 (09:32→20:46)
[2017-09-29] MEDS: ALVIMOPAN 12 MG CAPSULE - Post-op dosing PO SCH ×2 (09:33→20:35)
[2017-09-29] MEDS: clonazePAM 1 MG TAB PO SCH ×3 (09:33→18:10)
--- NOTE | 2017-09-29 11:01 | HHI.PR ---
Subjective Remarks C/R Surg POD # 2 afebrile, VSS UO good zeina PO Objective - Vital Signs Date Time Temp Pulse Resp B/P (MAP) Pulse Ox O2 Delivery O2 Flow Rate FiO2 09/29/17 08:00 98.3 83 17 103/65 (78) 91 09/27/17 18:00 Nasal Cannula 2 Result Diagram: 09/29/17 0547 09/29/17 0525 Other Results PE alert Abd - soft, wound dry, min tympany A/P Assessment and Plan Imp: adv diet OOB decr IVF Reynaldo Andino MD Sep 29, 2017 11:01
[2017-09-29] MEDS ORDERED: METOCLOPRAMIDE HCL 10 MG/2 ML VIAL IVS PRN (11:15)
[2017-09-29] MEDS: BACLOFEN 20 MG TAB PO SCH ×3 (12:00→18:10)
[2017-09-29] MEDS: [UNRECOGNIZED DRUG - REMARK] PO SCH ×2 (12:01→21:00)
[2017-09-29] MEDS: ESTRADIOL 1 MG TAB PO SCH (12:01)
[2017-09-29] MEDS: DULoxetine HCl DR 60 MG CAP PO SCH (12:01)
[2017-09-29] MEDS: traZODone HCL 100 MG TAB PO SCH (20:36)
[2017-09-30] VITALS: BP 94/59; PULSE 88; RESP 16; TEMP 97.7; O2SAT 93
[2017-09-30] MEDS: D5-LR + KCL 20 MEQ INJ 1,000 ML IV SCH (03:01)
[2017-09-30 04:00] VITALS: BP 100/63; PULSE 74; RESP 16; TEMP 98.2; O2SAT 93
[2017-09-30 06:00] VITALS: RESP 18
[2017-09-30] MEDS: PCA - TOTAL MG DILAUDID DELIVERED PER SHIFT OTHER SCH (06:00)
[2017-09-30] MEDS: ERYTHROMYCIN EC 250 MG TABEC PO SCH (06:23)
[2017-09-30] MEDS: LEVOTHYROXINE SODIUM 125 MCG TAB PO SCH (06:23)
[2017-09-30 08:00] VITALS: BP 87/52; PULSE 73; RESP 16; TEMP 97.6; O2SAT 92
[2017-09-30] MEDS: FUROSEMIDE 20 MG/2 ML VIAL IV PUSH SCH (09:00)
[2017-09-30] MEDS: SODIUM CHLORIDE 0.9% FLUSH 10 ML FLUSH IV FLUSH SCH (09:00)
[2017-09-30] MEDS: [UNRECOGNIZED DRUG - REMARK] PO SCH (09:00)
[2017-09-30] MEDS: DULoxetine HCl DR 60 MG CAP PO SCH (09:13)
[2017-09-30] MEDS: ALVIMOPAN 12 MG CAPSULE - Post-op dosing PO SCH (09:13)
[2017-09-30] MEDS: clonazePAM 1 MG TAB PO SCH ×2 (09:13→13:57)
[2017-09-30] MEDS: ESTRADIOL 1 MG TAB PO SCH (09:13)
[2017-09-30] MEDS: MIDODRINE 5 MG TAB PO SCH (09:13)
[2017-09-30] MEDS: BACLOFEN 20 MG TAB PO SCH ×2 (09:13→13:57)
[2017-09-30] MEDS: HEPARIN SODIUM - SQ 10,000 UNITS/ML VIAL SQ SCH (09:14)
[2017-09-30] MEDS: PANTOPRAZOLE SODIUM 40 MG VIAL IVP SCH (09:14)
[2017-09-30] MEDS: HYDROmorphone HCL PCA 6 MG/30 ML IV SCH (09:41)
[2017-09-30 12:00] VITALS: BP 89/54; PULSE 95; RESP 16; TEMP 98.4; O2SAT 91
--- NOTE | 2017-09-30 12:01 | HHI.PR ---
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
== END 2017-09-30 14:48 | disposition home or self-care (01) | DRG 331 ==
LOC: HSDI 11:11 → HCPC 18:25 → N07B 09-29 01:16
PROVIDERS: ADMIT Colon & Rectal Surgery; ATTEND Colon & Rectal Surgery
PROC: 0T9880Z Drainage of Bilateral Ureters with Drainage Device, Via Natural or Artificial Opening Endoscopic (ICD-10-PCS; 2017-09-27)
PROC: 0DTN0ZZ Resection of Sigmoid Colon, Open Approach (ICD-10-PCS; principal; 2017-09-27 13:41)
PROC: 0DNN0ZZ Release Sigmoid Colon, Open Approach (ICD-10-PCS; 2017-09-27 13:41)
DX: K56.51 Intestinal adhesions [bands], with partial obstruction (principal); K56.2 Volvulus; K56.41 Fecal impaction; K57.30 Diverticulosis of large intestine without perforation or abscess without bleeding; K21.9 Gastro-esophageal reflux disease without esophagitis; Z86.010 Personal history of colon polyps; Z87.891 Personal history of nicotine dependence
CPT/HCPCS: 36415; 71046; 76937; 80048; 80053; 81001; 85025; 85610; 85730; 86850; 86900; 86901; 88307; 93005; 94150; C9113; J0131; J0690; J1100; J1170; J1644; J1885; J1940; J2175; J2250; J2405; J2710; J2765; J3010; J3480; J7120